=== PATIENT | female | born 1935 ===

== ENCOUNTER 2017-12-16 08:05 | Emergency (ER) | payer MEDICARE ==
[2017-12-16 08:10] VITALS: BMI 22.6
[2017-12-16 08:14] VITALS: RESP 18
--- NOTE | 2017-12-16 08:14 | C.PDOC ---
History Of Present Illness 82-year-old female, presents to the emergency department brought in from [facility], with complaints of hematoma on left forehead and orbital area s/p fall yesterday. Patient also has multiple small scabs on her arms and legs. No other complaints at this time. - HPI Time Seen by Provider: 12/16/17 08:05 Chief Complaint (Nursing): Trauma History Per: Patient, EMS History/Exam Limitations: no limitations Past Medical History Reviewed: Historical Data, Nursing Documentation, Vital Signs Vital Signs: Last Vital Signs Temp 98.7 F 12/16/17 11:23 Pulse 88 12/16/17 11:23 Resp 18 12/16/17 11:23 BP 123/62 12/16/17 11:23 Pulse Ox 100 12/16/17 11:23 Family History: States: No Known Family Hx Review Of Systems Constitutional: Negative for: Fever, Chills Cardiovascular: Negative for: Chest Pain Respiratory: Negative for: Shortness of Breath Gastrointestinal: Negative for: Nausea, Vomiting, Abdominal Pain Musculoskeletal: Positive for: Back Pain Physical Exam - Physical Exam Appears: Non-toxic, No Acute Distress, Other (Malodorous) Skin: Normal Color, Warm, Dry, No Rash Head: Atraumatic, Normacephalic Eye(s): bilateral: Normal Inspection Nose: Normal Oral Mucosa: Moist Lips: Normal Appearing Neck: Normal ROM Chest: Symmetrical Cardiovascular: Rhythm Regular, No Murmur Respiratory: Normal Breath Sounds, No Accessory Muscle Use Gastrointestinal/Abdominal: Soft, No Tenderness Back: Paraspinal Tenderness (Lumbar) Pelvic: Other (Pt is wearing a diaper, foul smelling.) Extremity: Normal ROM, No Deformity, No Swelling, Other (multiple small erythematous scabs on arms and legs) Neurological/Psych: Oriented x3 ED Course And Treatment Progress Note: Treated with keflex for UTI and tylenol. On re-evaluation alert awake in no distress. Discharged in stable condition Reassessment Condition: Improved Disposition Counseled Patient/Family Regarding: Studies Performed, Diagnosis - Disposition Disposition: HOME/ ROUTINE Disposition Time: 10:00 Condition: STABLE Prescriptions: Cephalexin [Keflex] 500 mg PO Q8H #21 capsule Instructions: Preventing Falls in the Older Adult, Preventing Falls, Urinary Tract Infections in Adults Forms: [employer] (Kinyarwanda) - POA Present On Arrival: None - Clinical Impression Clinical Impression: Head injury, Back pain, UTI (urinary tract infection) - Scribe Statement The provider has reviewed the documentation as recorded by the Scribe (Lakisha Rodríguez) All medical record entries made by the Scribe were at my direction and personally dictated by me. I have reviewed the chart and agree that the record accurately reflects my personal performance of the history, physical exam, medical decision making, and the department course for this patient. I have also personally directed, reviewed, and agree with the discharge instructions and disposition.
--- NOTE | 2017-12-16 09:28 | CT ---
Date of service: 12/16/2017 PROCEDURE: CT HEAD WITHOUT CONTRAST. HISTORY: R/O Bleed COMPARISON: None available. TECHNIQUE: Axial computed tomography images were obtained through the head/brain without intravenous contrast. Coronal and sagittal reconstructed images. 3D surface rendering images for assessment of the calvarium and visualized facial bones Radiation dose: Total exam DLP = 867.59 mGy-cm. This CT exam was performed using one or more of the following dose reduction techniques: Automated exposure control, adjustment of the mA and/or kV according to patient size, and/or use of iterative reconstruction technique. FINDINGS: HEMORRHAGE: No intracranial hemorrhage. BRAIN: No mass effect or edema. Cortical atrophy, periventricular small vessel disease. VENTRICLES: Unremarkable. No hydrocephalus. CALVARIUM: Unremarkable. PARANASAL SINUSES: Unremarkable as visualized. No significant inflammatory changes. MASTOID AIR CELLS: Unremarkable as visualized. No inflammatory changes. OTHER FINDINGS: Right frontal scalp contusion without adjacent calvarial or underlying intracranial abnormalities. IMPRESSION: No acute intracranial abnormalities. No significant findings to account for the clinical presentation. Additional benign and/or incidental findings described above.
--- NOTE | 2017-12-16 09:30 | RAD ---
Date of service: 12/16/2017 HISTORY: Posttraumatic pain COMPARISON: No prior. FINDINGS: BONES: Alignment maintained. No fracture. Osteopenia. DISC SPACES: Mild degenerative changes primarily disc space narrowing and non marginal osteophyte formation. SOFT TISSUES: Normal. OTHER FINDINGS: None. IMPRESSION: No acute findings related to/accounting for the clinical presentation.
--- NOTE | 2017-12-16 09:39 | RAD ---
Date of service: 12/16/2017 PROCEDURE: Radiographs of the Lumbar Spine. HISTORY: Posttraumatic pain COMPARISON: 05/25/2017 CT chest, abdomen and pelvis FINDINGS: BONES: Compression deformity L2 vertebral body. The finding was apparent on the prior CT scan of the thorax abdomen and pelvis. DISC SPACES: Unremarkable. OTHER FINDINGS: Calcified nonaneurysmal abdominal aorta. IMPRESSION: No acute findings related to/accounting for the clinical presentation. Stable compression deformity L2 vertebral body.
[2017-12-16 10:21] VITALS: BP 123/62; PULSE 88
[2017-12-16 10:30] LABS: SQUAMOUS EPITHIAL 1 /hpf (0-5); URINE BACTERIA OCC (<OCC); URINE BILIRUBIN NEGATIVE (NEGATIVE); URINE BLOOD 1+ (NEGATIVE); URINE CLARITY Hazy (Clear); URINE COLOR Yellow (YELLOW); URINE GLUCOSE (UA) NORMAL (Normal); URINE LEUKOCYTE ESTERASE 3+ Leu/uL (Negative); URINE PROTEIN NEGATIVE (NEGATIVE); URINE UROBILINOGEN NORMAL mg/dL (0.2-1.0)
[2017-12-16 11:26] VITALS: TEMP 98.7; O2SAT 100
== END 2017-12-16 11:25 | disposition home or self-care (01) ==
LOC: C.ER 08:05
DX: S00.83XA Contusion of other part of head, initial encounter (principal); W19.XXXA Unspecified fall, initial encounter; Y92.129 Unspecified place in nursing home as the place of occurrence of the external cause; N39.0 Urinary tract infection, site not specified; M54.9 Dorsalgia, unspecified

== ENCOUNTER 2017-12-30 07:36 | Day surgery (SDC) | payer MEDICARE ==
[~2017-12-30 07:36] MED LIST: Bupivacaine 0.25% 20 ML INJ IJ ONE; ceFAZolin 1 gm in NS 1 GM/100 ML BAG IVPB ONE
[2017-12-30] MEDS ORDERED: Bupivacaine-Epi 0.5%-1:200,000 PF Inj ONE (08:17)
[2017-12-30] MEDS ORDERED: Lactated Ringer's 1,000 ML IV ONE (09:35)
[2017-12-30] MEDS ORDERED: Propofol 10 mg/ml Inj (20 ML) ONE (09:46)
[2017-12-30] MEDS ORDERED: ePHEDrine 50 mg/ml Inj ONE (10:20)
[2017-12-30] MEDS ORDERED: Oxycodone/Acetaminophen 5/325 mg Tab PO PRN (10:37)
--- NOTE | 2017-12-30 10:37 | PCM.SURG1 ---
Surgeon's Initial Post Op Note - Surgeon's Notes Surgeon: Dr. Goff Rx Specialist: Dr. Davis PGY3 Type of Anesthesia: General Endo Anesthesia Administered By: Dr. Luther Pre-Operative Diagnosis: lipoma of back Operative Findings: see operative report Post-Operative Diagnosis: see operative report Operation Performed: excision of back lipoma Specimen/Specimens Removed: lipoma Estimated Blood Loss: EBL {In ML}: 15 Blood Products Given: N/A Drains Used: No Drains Post-Op Condition: Good Date of Surgery/Procedure: 12/30/17 Time of Surgery/Procedure: 10:00
[2017-12-30] MEDS ORDERED: Lactated Ringer's 1,000 ML IV SCH (10:45)
[2017-12-30 14:23] VITALS: O2SAT 95
[2017-12-30 14:45] VITALS: RESP 16
[2017-12-30 17:36] VITALS: BP 98/52; PULSE 85; TEMP 97.6
--- NOTE | 2017-12-31 09:00 | OP ---
PROCEDURE DATE: 12/30/2017 PREOPERATIVE DIAGNOSIS: Large lipoma fat. POSTOPERATIVE DIAGNOSIS: Large lipoma fat. PROCEDURE CARRIED: Excision involved with 15 cm lipoma fat. SURGEON: Renato Goff Jr., MD [employer]NER MACHINE OPERATOR: Destin Davis DO ANESTHESIOLOGIST: Chris Busby MD. INDICATIONS: The patient is an 82-year-old woman with history of colon and kidney cancer, who presents with a large over 15 cm of lipoma of the back, which has increased in size. OPERATIVE FINDINGS: This was considered as bilobed lipoma. BLOOD LOSS: 20 mL. DESCRIPTION OF PROCEDURE: The patient was given general anesthesia as well as local anesthesia. Intravenous antibiotics were administered. Incision was made directly over the mid point of lipoma which was excised. After this has been excised, hemostasis obtained. The wound was closed in two layers. The skin was closed with skin clips. Blood loss of the procedure was 20 mL. OPERATION CARRIED OUT: Excision of 15 cm lipoma fat. Renato Goff Jr., MD cc: Anders Heredia MD
== END 2017-12-30 15:45 | disposition home or self-care (01) ==
LOC: C.SDS 07:36
PROVIDERS: ATTEND Surgery Vascular Surgery
DX: D17.1 Benign lipomatous neoplasm of skin and subcutaneous tissue of trunk (principal); Z85.528 Personal history of other malignant neoplasm of kidney
CPT/HCPCS: 11406; 12035; 88304; J0690; J2270; J2704; J7120